=== PATIENT | male | born 1995 | race Caucasian/White ===

== ENCOUNTER 2017-07-23 01:45 | Emergency (ER) | payer BC ==
[2017-07-23] MEDS ORDERED: Lidocaine 1% w/Epinephrine 1:100K 20 ML VIAL ONE (02:55)
[2017-07-23] MEDS ORDERED: Bacitracin Zinc 1 Packet ONE (03:50)
--- NOTE | 2017-07-23 12:29 | RAD ---
TWO VIEWS RIGHT WRIST: HISTORY: Trauma. FINDINGS: AP and lateral views right wrist are obtained. No evidence of right wrist fractures, subluxations, or bony lesions seen. No evidence of acute or ch ronic bony abnormality noted. IMPRESSION: Normal 2 views right wrist. POS: [facility]
== END 2017-07-23 04:38 | disposition home or self-care (01) ==
LOC: ERS 01:45
DX: S61.511A Laceration without foreign body of right wrist, initial encounter (principal); F10.129 Alcohol abuse with intoxication, unspecified; W25.XXXA Contact with sharp glass, initial encounter
CPT/HCPCS: 12002; J2001

== ENCOUNTER 2017-08-02 18:44 | Emergency (ER) | payer BC | END 2017-08-02 19:35 | disposition home or self-care (01) | LOC: ERS 18:44 | DX: S61.511D Laceration without foreign body of right wrist, subsequent encounter (principal) ==